=== PATIENT | female | born 1985 | race Caucasian/White ===

== ENCOUNTER 2022-04-10 11:09 | Emergency (ER) | payer OTHER ==
[~2022-04-10] VITALS: Ht 165.1 cm; Wt 67.6 kg
[2022-04-10 11:11] VITALS: BP 101/70
--- NOTE | 2022-04-10 11:40 | NUR ---
VAGINAL SWABS AND URINE COLLECTED AND WALKED TO LAB.
--- NOTE | 2022-04-10 11:40 | NUR ---
Female Treasury Representative accompanied female patient for VAGINAL Exam.
[2022-04-10] MEDS ORDERED: ACETAMINOPHEN EXTRA STRENGTH 500 MG TAB PO ONE (11:45)
--- NOTE | 2022-04-10 11:45 | NUR ---
36/F PRESENTS TO ED WITH C/O VAGINAL PAIN SINCE YESTERDAY. 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 PATIENT REPORTS 7/10 "BURNING, TEARING" PAIN AT THE [facility]. STATES SHE FEELS A "BUMP" AND SWELLING. SITE IS TENDER TO TOUCH, DENIES TAKING MEDICATIONS. PATIENT REPORTS NEW SEXUAL PARTNER AND IS CONCERNED FOR POSSIBLE NEW STDS. PATIENT C/O ONE EPISODE OF FEVER YESTERDAY, DENIES COUGH, N/V/D.
[2022-04-10 12:58] LABS: APPEARANCE,URINE CLEAR (CLEAR); COLOR,URINE YELLOW (YELLOW); PH,URINE 6.5 (5.0-9.0); UGLUCOSE NEGATIVE (NEGATIVE)
[2022-04-10 12:59] LABS: BILIRUBIN,URINE NEGATIVE (NEGATIVE); BLOOD, URINE NEGATIVE (NEGATIVE); LEUKOCYTE ESTERASE ,URINE NEGATIVE (NEGATIVE); NITRITE, URINE NEGATIVE (NEGATIVE)
[2022-04-10 13:00] LABS: RBC,URINE 0-5 /HPF (0-5); TRICHOMONAS,URINE None Seen /HPF (None Seen); WBC,URINE 0-5 /HPF (0-5); YEAST,URINE None Seen /HPF (None Seen)
[2022-04-10] MEDS ORDERED: ACYCLOVIR 200 MG CAP PO ONE (13:40)
[2022-04-10] MEDS ORDERED: ACYC400T14 PO (13:40)
[2022-04-10] MEDS ORDERED: DOXY-690 PO (13:47)
[2022-04-10] MEDS ORDERED: cefTRIAXone 500 MG in LIDOCAINE MPF 1% 1 ML IM ONE (13:50)
[2022-04-10] MEDS ORDERED: DOXYCYCLINE 100 MG CAP PO SCH (13:50)
[2022-04-10] MEDS ORDERED: LIDOCAINE MPF 1% 5 ML ONE (13:53)
[2022-04-10] MEDS ORDERED: cefTRIAXone 500 MG VIAL ONE (13:53)
[2022-04-10 14:26] VITALS: BP 112/56
--- NOTE | 2022-04-10 14:26 | NUR ---
Patient discharged with v/s stable. Written and verbal after care instructions given FOR GENITAL HERPES and explained. Patient alert, oriented and verbalized understanding of instructions. Ambulatory with steady gait. All questions addressed prior to discharge. ID band removed. Patient advised to follow up with PMD. Rx of DOXYCYCLINE, ACYCLOVIR given. Patient educated on indication of medication including possible reaction and side effects. Opportunity to ask questions provided and answered.
== END 2022-04-10 14:26 | disposition home or self-care (01) ==
LOC: MED 11:09
DX: A60.00 Herpesviral infection of urogenital system, unspecified (principal); E03.9 Hypothyroidism, unspecified
CPT/HCPCS: 36415; 81001; 81025; 87086; 87110; 87252; 87299; 96372; 99284; J0696; J2001